=== PATIENT | male | born 1995 | race Caucasian/White ===

== ENCOUNTER 2020-03-02 21:34 | Emergency (ER) | payer OTHER, SELFPAY ==
[2020-03-02 21:43] VITALS: BP 138/74; PULSE 93; RESP 16; TEMP 37.1; O2SAT 96; BMI 26.6
--- NOTE | 2020-03-02 22:02 | PC.NURSE ---
THIS NURSE CALLED OUT TO WAITING ROOM. PATIENT REPORTING THAT HE WANTS TO CALL DETOXES. DOES NOT WANT TO COME IN AT THIS TIME.
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
== END 2020-03-02 22:23 | disposition left against medical advice (07) ==
PROVIDERS: Emergency Provider Emergency Medicine
DX: F19.10 Other psychoactive substance abuse, uncomplicated (principal)
CPT/HCPCS: 99283

== ENCOUNTER 2020-03-02 23:14 | Emergency (ER) | payer OTHER, SELFPAY ==
[2020-03-03] VITALS: BP 142/73; PULSE 87; RESP 16; TEMP 36.8; O2SAT 95; BMI 23.5
[2020-03-03 00:32] VITALS: BP 154/103; PULSE 96; RESP 17; TEMP 37.1; O2SAT 99
[2020-03-03 01:17] LABS: Amphetamine Screen Urine Not Detected (Not Detect); Barbiturates, Urine Not Detected (Not Detect); Benzodiazepines Screen Urine POSITIVE (Not Detect); Cannabinoid Screen Urine Not Detected (Not Detect); Cocaine Screen Urine POSITIVE (Not Detect); Opiate Screen Urine POSITIVE (Not Detect); Phencyclidine Screen Urine Not Detected (Not Detect)
--- NOTE | 2020-03-03 01:29 | ED_ITS ---
HPI - General Adult General Chief complaint: General Medical Stated complaint: CRISIS Time Seen by Provider: 03/03/20 01:09 Source: patient Mode of arrival: ambulatory Limitations: no limitations History of Present Illness HPI narrative: Patient comes emergency room trying to speak to a financial wellness coach. Patient states that he uses opioids and cocaine. Patient states he recently left [facility] against medical advice, states that his grandmother got very sick, was sent to the hospital, and the whole family was at the hospital and he wanted to be there as well. Patient denies any suicidal or homicidal ideation, states he has never had any intention of hurting himself in the past. Patient was here earlier, went to the [facility], requested to be discharged because he needed to make more phone calls for detox beds. Patient came back looking for advice on how to get detox beds. Patient denies SI HI. complaint: Looking for detox Related Data Allergies Allergy/AdvReac Type Severity Reaction Status Date / Time No Known Allergies Allergy Verified 03/02/20 21:42 [No Known Allergies*] Review of Systems Review of Systems: Constitutional : No Weight loss, No Fever, No Chills, No Night Sweats, No Fatigue, No Malaise ENT/Mouth : No Hearing loss, No Ear Pain, No Nasal Congestion, No Sinus Pain, No Hoarseness, No sore throat, No Rhinorrhea, No Swallowing Difficulty Eyes: No Eye Pain, No Swelling, No Redness, No Foreign Body, No Discharge, No Vision Changes Cardiovascular : No Chest Pain, No SOB, No Dyspnea on Exertion, No Orthopnea, No Edema, No Palpitations Respiratory : No Cough, No Sputum, No Wheezing, No Smoke Exposure, No Dyspnea Gastrointestinal : No Nausea, No Vomiting, No Diarrhea, No Constipation, No abdominal Pain, No Hematochezia, No Melena Genitourinary : no irregular bleeding, No Dysuria, No Urinary Frequency, No Hematuria, No Urinary Incontinence, No Urgency, No Flank Pain, No Urinary Flow Changes, No Hesitancy Musculoskeletal : No joint pain, No Myalgias, No Joint Swelling Skin : No Skin Lesions, No rash Neuro : No Weakness, No Numbness, No Paresthesias, No Loss of Consciousness, No Dizziness, No Headache Psych : No Anxiety/Panic, No Depression, No SI/HI/AH/VH, No Social Issues, Heme/Lymph: No Bruising, No Bleeding,No Lymphadenopathy Endocrine : No Polyuria, No Polydipsia, No Temperature Intolerance [facility] Past Medical History Medical History (Updated 03/03/20 @ 01:42 by Alexandra Laguerre MD) Substance abuse Social History Social History Advance Directives: No Advance Directives Information Provided: No Physical Exam Vital Signs: Vital Signs: Last Vital Signs Temp 98.8 F 03/03/20 00:32 Pulse 96 03/03/20 00:32 Resp 17 03/03/20 00:32 BP 154/103 H 03/03/20 00:32 Pulse Ox 99 03/03/20 00:32 Body Mass Index 23.5 Appearance: Alert. Oriented X3. No acute distress. Eyes: Pupils equal, round and reactive to light. ENT: Pharynx normal. Neck: Normal inspection. Neck supple. No lymph nodes noted. No crepitus CVS: Normal heart rate and rhythm. Pulses normal. Normal S1 and S2 Respiratory: No respiratory distress. Breath sounds normal. No Wheezing. No rales Abdomen: Soft and nontender. No rigidity. No distention. good BS x4 Skin: Skin warm and dry. Normal skin color. Normal skin turgor. Extremities: No lower extremity edema. No lower extremity edema. No Lacerations. No Rash Neuro: Oriented X 3. No motor deficit. No sensory deficit. Moving all extermities. No slurred speech. Course Course Course Narrative: The care team and I spoke to the patient, patient absolutely refuses to be suicidal or homicidal. Patient is very motivated to make his own phone calls to get into detox. Patient will go tomorrow at 8 a.m. to [facility] and try to get admitted. Patient states that his parents are involved in trying to help him, has good family support Medical Decision Making Lab Data Labs: Lab Results 03/03/20 Range/Units 00:54 Urine Opiates Screen POSITIVE H (Not Detect) Ur Barbiturates Screen Not Detected (Not Detect) Ur Phencyclidine Scrn Not Detected (Not Detect) Ur Amphetamines Screen Not Detected (Not Detect) U Benzodiazepines Scrn POSITIVE H (Not Detect) Urine Cocaine Screen POSITIVE H (Not Detect) U Marijuana (THC) Screen Not Detected (Not Detect) Discharge Plan Discharge Clinical Impression: Substance abuse Patient Disposition: Home, Self-Care Instructions: Polysubstance Abuse (ED) Additional Instructions: Please go to [facility] later today in the morning. Please keep making your own phone calls to detox facilities. If he needs additional help, please call the care team. Please follow-up with your primary care physician tomorrow. If you have any worsening or new symptoms, please return to the emergency room or call 911
--- NOTE | 2020-03-03 01:45 | MHC.CARE ---
CARE Team conducts a bedsearch throughout [place], [place] on pt's behalf, calling [facility], [facility], [facility], and [facility] programs; no male beds avilable today. CARE Team meets with pt along with Dr. Laguerre. Pt states that he wants to leave the ED and only came because family member told him he would be able to speak with a recovery engineer. No recovery coaches available on Thursday nights. Pt's mother called 03/02 in the evening and spoke with CARE Team's Angel Luis Monzon. Mother indicated that pt has been sending vague text messages that are suicidal in nature. Pt came to the ED 2x, the first time leaving without being brought in from waiting room. Both times, pt denies SI/HI. Pt adamantly denies SI at this time, denies any hx of risk. He appears future oriented, as evidenced by being eager to go care for his dog, and calling both [facility] and [facility] himself. He appears motivated for treatment at this time and plans to self present to [facility] tomorrow morning. Pt states that he has been in touch with [facility], CARE Team was unable to confirm if he is on their wait list. Prov ATS typically wants UTOX and covid labs before admitting if a pt has been in the ED recently. CARE Team with pt's verbal consent will fax labs to [facility]. Pt is given contact info for CARE Team and [facility] and is encouraged to reach out for support tomorrow if he needs continued assistance finding and ATS placement. Plan was discussed with and agreed upon by Dr. Jenkins, who was present for intervention.
[2020-03-03 02:19] LABS: COVID-19 Test Negative (Negative); IDNOW Serial# 9DD0AD1C
--- NOTE | 2020-03-03 02:29 | MHC.CARE ---
Results faxed to [facility].
== END 2020-03-03 02:11 | disposition home or self-care (01) ==
PROVIDERS: Emergency Provider Emergency Medicine
DX: F11.129 Opioid abuse with intoxication, unspecified (principal); F14.129 Cocaine abuse with intoxication, unspecified; Z20.822 Contact with and (suspected) exposure to COVID-19; Z71.51 Drug abuse counseling and surveillance of drug abuser
CPT/HCPCS: 36415; 80307; 87635; 99283

== ENCOUNTER 2020-07-29 21:46 | Emergency (ER) | payer OTHER, SELFPAY ==
[2020-07-29 21:53] VITALS: BP 149/95; PULSE 87; RESP 18; TEMP 36.6; O2SAT 99; BMI 23.5
--- NOTE | 2020-07-29 22:32 | MHC.CARE ---
Met with pt in waiting room re: his presentation to ED seeking detox. It was explained that given the time of night and the volume of the ED, it was likely that he wouldn't be seen for some time and that it would be unlikely that it would result in him being admitted for detox treatment anywhere. Pt was provided with a list of detox facilities, explaining the ones that he can show up to at 8am to attempt to get a bed. He was also given a pamphlet for [facility] and encouraged to use them as a support with getting into a treatment program. ED charge nurse updated re: pt's departure from waiting room.
== END 2020-07-29 22:29 | disposition left against medical advice (07) ==
PROVIDERS: Emergency Provider Emergency Medicine
DX: F19.10 Other psychoactive substance abuse, uncomplicated (principal); F14.90 Cocaine use, unspecified, uncomplicated
CPT/HCPCS: 99281; 99282

== ENCOUNTER 2023-08-03 08:25 | Emergency (ER) | payer SELFPAY ==
[2023-08-03 08:33] VITALS: BP 127/86; BP 150/81; PULSE 107; PULSE 95; RESP 16; TEMP 37; O2SAT 96; O2SAT 98; BMI 30.4
--- NOTE | 2023-08-03 08:41 | ED_ITS ---
HPI - Overdose General Chief Complaint: Overdose Stated Complaint: HEROIN OD,NARCAN GIVEN BY FAMILY W/GOOD RESULT Source: patient and EMS Mode of arrival: EMS Limitations: no limitations History of Present Illness ED Provider: BELLA GAUTHIER Narrative: 28 yo male with PMH of prior opiate use not on MAT therapy who has abstained for 3.5 years admits to using TECHNICAL SERVICES COORDINATOR 1 bag of heroin/fentanyl and overdosed. Bystanders and PD are conflicted about narcan amount 4mg vs 16mg but he woke up and walked to EMS stretcher he has no SI/HI. He does not want detox or SUDE eval. complaint: accidental overdose Onset (ago): minute(s) (TECHNICAL SERVICES COORDINATOR) Context: Accidental Overdose: wanted to get high Associated symptoms: other (NONE) Treatments Prior to Arrival: narcan Related Data Allergies Allergy/AdvReac Type Severity Reaction Status Date / Time No Known Allergies Allergy Verified 08/03/23 08:35 [No Known Allergies*] Review of Systems Review of Systems: Constitutional : No Fever, No Chills, No Fatigue ENT/Mouth : No sore throat, No Rhinorrhea Eyes: No Eye Pain, No Swelling, No Redness Cardiovascular : No Chest Pain, No SOB, No Dyspnea on Exertion Respiratory : No Cough, No Sputum Gastrointestinal : No Nausea, No Vomiting, No Diarrhea, No abdominal Pain Genitourinary : No Dysuria, No Urinary Frequency, No Hematuria, Musculoskeletal : No joint pain, No Myalgias, No Joint Swelling Skin : No Skin Lesions, No rash Neuro : No Weakness, No Numbness, No Dizziness, no Headache Psych : No Anxiety/Panic, No Depression, no SI/HI Heme/Lymph: No Bruising, No Bleeding,No Lymphadenopathy Endocrine : No Polyuria, No Polydipsia All other systems reviewed and are negative [facility] Past Medical History Attestation statement: The following information was validated with the patient. Source: old records reviewed Medical History Substance abuse Social History Social History Smoked in Last 30 Days: No Use of substances other than those prescribed or required for medical reasons: Yes Substance Use Type: Heroin Substance Use Type Other:: fentanyl Last Used Substance: Just Prior to Admission Advance Directives: No Advance Directives Information Provided: No Do you have a plan to hurt others: No Plan Physical Exam Vital Signs: Vital Signs: Last Vital Signs Temp 98.6 F 08/03/23 08:33 Pulse 95 08/03/23 08:33 Resp 16 08/03/23 08:33 BP 127/86 08/03/23 08:33 Pulse Ox 96 08/03/23 08:33 O2 Del Method Room Air 08/03/23 08:33 BMI result Body Mass Index 30.4 Appearance: Alert. Oriented X3. No acute distress. Eyes: Pupils equal, round and reactive to light. ENT: Pharynx normal. Neck: Normal inspection. Neck supple. CVS: Normal heart rate and rhythm. Pulses normal. Respiratory: No respiratory distress. Breath sounds normal. Abdomen: Soft and nontender. Skin: Skin warm and dry. Normal skin color. Normal skin turgor. Extremities: No lower extremity edema. No calf ttp Neuro: Oriented X 3. No motor deficit. No sensory deficit. Medical Decision Making Medical Decision Making MDM Narrative: 28 yo male with PMH of opiate use disorder here after accidental overdose he does not want SUDE addiction medicine consult or services he has no SI/HI he has no trauma will observe and then DC - narcan to go ordered Differential Diagnosis Differential Diagnoses: The differential diagnosis associated with the presentation includes overdose, opiate use disorder Admission/Observation Consideration of admission/observation: Escalation of care including admission/observation considered patient alert and oriented no need for repeat narcan declines SUDE or addiction medicine involvement Independent Historian Clinical information obtained from an independent historian. History obtained from or confirmed by: EMS Prescription Management I considered prescription management with: Other Discharge Plan Discharge Clinical Impression: Drug overdose Patient Disposition: Home, Self-Care Instructions: Adult Overdose (ED) Additional Instructions: return for worsening symptoms help with any substance abuse carry narcan with you at all times Print Language: Greek
[2023-08-03 09:34] VITALS: BP 128/83; PULSE 92; RESP 16; TEMP 37; O2SAT 95
[2023-08-03] MEDS: Naloxone HCl Nasal TAKE HOME 4 MG SPRAY 8 MG NOSTRILALT (09:43)
== END 2023-08-03 09:43 | disposition home or self-care (01) ==
PROVIDERS: Emergency Provider Emergency Medicine
DX: T40.1X1A Poisoning by heroin, accidental (unintentional), initial encounter (principal); F11.10 Opioid abuse, uncomplicated; Y92.9 Unspecified place or not applicable; Z71.51 Drug abuse counseling and surveillance of drug abuser
CPT/HCPCS: 99283; 99284

== ENCOUNTER 2024-06-05 22:16 | Emergency (ER) | payer SELFPAY ==
--- NOTE | 2024-06-05 | ECG_ITS ---
Test Reason : cp Blood Pressure : */* mmHG Vent. Rate : 84 BPM Atrial Rate : 84 BPM P-R Int : 130 ms QRS Dur : 82 ms QT Int : 364 ms P-R-T Axes : 42 28 34 degrees QTcB Int : 430 ms Normal sinus rhythm Normal ECG No previous ECGs available Referred By: Generic ED Physician Electronically Signed By: KEYON HERNDON
--- NOTE | ~2024-06-05 | XR_ITS ---
CLINICAL HISTORY: chest pain 2 view chest x-ray Comparison: None Findings: Lungs are clear without acute infiltrates. No pneumothorax. Heart size normal. No acute bony abnormalities. Impression: No acute processes This document has been electronically signed by: Carter Mathew MD on 06/05/2024 23:38:03
[2024-06-05 22:40] VITALS: BP 127/75; PULSE 82; RESP 18; TEMP 36.8; O2SAT 97; BMI 27.5
[2024-06-05 23:05] LABS: MANUAL DIFF FLAG NO
[2024-06-05 23:06] LABS: Basophils Absolute Auto 0.1 X10*3/uL (0.0-0.2); Basophils Percent Auto 1.2 % (0-2); Eosinophils Absolute Auto 0.2 X10*3/uL (0.0-0.4); Eosinophils Percent Auto 4.7 % (0-4); Hematocrit 38.8 % (42.0-52.0); Hemoglobin 13.6 g/dl (14.0-18.0); Imm Gran Abs Auto 0.01 X10*3/uL (0.00-0.03); Imm Gran Pct Auto 0.2 % (0.0-0.4); Lymphocytes Absolute Auto 1.7 X10*3/uL (1.2-4.9); Lymphocytes Percent Auto 38.7 % (20-40); Mean Corpuscular HGB Conc 35.1 g/dl (31.0-36.0); Mean Corpuscular Hemoglobin 30.3 pg (27.0-33.0); Mean Corpuscular Volume 86.4 fL (80.0-98.0); Mean Platelet Volume 8.7 fL (9.4-12.4); Monocytes Absolute Auto 0.3 X10*3/uL (0.1-1.2); Monocytes Percent Auto 6.3 % (2-11); Neutrophils Absolute Auto 2.1 x10*3/uL (2.0-8.3); Neutrophils Percent Auto 48.9 % (45-73); Platelet Count 224 X10*3/uL (160-400); Red Blood Count 4.49 X10*6/uL (4.60-5.80); Red Cell Distribution Width 12.1 % (11.0-16.0); White Blood Count 4.3 X10*3/uL (4.8-10.8)
[2024-06-05 23:20] LABS: Albumin Level 4.5 g/dL (3.5-5.0); Alkaline Phosphatase 77 U/L (39-117); Anion Gap 14 (12-20); Aspartate Amino Transferase 32 U/L (5-37); Bilirubin Total 0.3 mg/dL (0.0-1.0); Blood Urea Nitrogen 8 mg/dL (9-16); Calcium 10.1 mg/dL (8.4-10.2); Carbon Dioxide 27 mmol/L (22-29); Chloride 104 mmol/L (96-108); Creatinine Clr Calc Pharmacy 146.2; Estimated Glomerular Filt Rate > 60; Glucose Random 85 mg/dL (60-115); Potassium 4.2 mmol/L (3.3-5.1); Sodium 141 mmol/L (135-145); Total Protein 7.5 g/dL (6.5-8.0)
[2024-06-05 23:27] LABS: Troponin-I High Sensitivity 2.8 ng/L (<3.5-35.0)
[2024-06-05 23:37] LABS: Alanine Aminotransferase 51 U/L (0-40)
[2024-06-05 23:43] VITALS: BP 127/82; PULSE 85; RESP 14; TEMP 36.6; O2SAT 100
--- NOTE | 2024-06-05 23:44 | MHC.EDTECH ---
Patient changed into hospital attire,placed on the cardiac rehabilitation specialist,vitals taken,pt appears comfortable, provider at bedside,call schaffer in reach
--- NOTE | 2024-06-05 23:55 | ED_ITS ---
HPI - Chest Pain General Chief Complaint: Chest Pain Stated Complaint: chest pain/left side fingers numb Time Seen by Provider: 06/05/24 23:34 Source: patient, family, RN notes reviewed and old records reviewed Mode of arrival: ambulatory Limitations: no limitations History of Present Illness ED Provider: Justin GAUTHIER narrative: 29-year-old male presents for evaluation of chest pain. Patient reports that he has been using a significant amount of IV cocaine for the last 3 months. He states that while using IV cocaine yesterday he had severe chest pain, shortness of breath and I felt like something was off. He states he has had intermittent chest pain since yesterday. He was occasional numbness and tingling in his left arm and he had. He has a history of anxiety. The patient admits to using approximately 200 dollars worth of cocaine daily he has used IV cocaine on and off for the last 6 years with a 3 year period of sobriety in that time Related Data Allergies Allergy/AdvReac Type Severity Reaction Status Date / Time No Known Allergies Allergy Verified 06/05/24 22:48 [No Known Allergies*] Review of Systems 2 Constitutional: Constitutional: Denies body ache(s), Denies chills, Denies fever(s) and Denies frequent falls Eyes: Eyes: Denies blurry vision ENT: Denies vertigo Cardiovascular: Cardiovascular: Reports chest pain, Reports chest pain at rest, Reports chest pain with activity, Reports rapid heart rate, Reports palpitations and Reports dyspnea Respiratory: Respiratory: Denies cough and Reports dyspnea Gastrointestinal: Gastrointestinal: Denies abdominal pain, Denies nausea and Denies vomiting Musculoskeletal: Musculoskeletal: Denies back pain Integumentary/Breasts: Skin/Breast: Denies rash Neurologic: Denies vertigo and Denies frequent falls Psychiatric: Psychiatric: Reports anxiety, Denies homicidal ideation and Denies suicidal ideation Endocrine: Endocrine: Reports palpitations PMFSH Past Medical History Medical History Substance abuse Social History Social History Substance Use Type: Heroin Advance Directives: No Advance Directives Information Provided: Yes Physical Exam 2 Vital Signs: Vital Signs: Last Vital Signs Temp 97.9 F 06/05/24 23:43 Pulse 85 06/05/24 23:43 Resp 14 06/05/24 23:43 BP 127/82 06/05/24 23:43 Pulse Ox 100 06/05/24 23:43 O2 Del Method Room Air 06/05/24 23:43 BMI result Body Mass Index 27.5 Const: General: healthy appearing, comfortable, no acute distress, alert and awake Nutritional Appearance: well nourished Orientation/consciousness: p atient oriented x3 HEENT: Head: Yes normocephalic and Yes atraumatic Eyes: Eyelids: Yes eyelids normal Conjunctivae: conjunctivae normal S clerae: sclerae normal Corneas: corneas normal Pupils: Equal, round and reactive pupils present EOM: EOMs intact bilaterally Neck: Neck: Yes full ROM Resp: Effort & Inspection: normal respiratory effort, able to speak in complete sentences, no audible wheezes and not labored Auscultation: clear to auscultation bilaterally Cardio: Rate: regular rate Rhythm: regular rhythm GI: Inspection: No distended Palpation (GI): Soft to palpation, not firm, nontender, no guarding and not rigid Skin: General skin exam: no rashes or lesions noted and elasticity normal Neuro: General: patient oriented x3 Cranial nerves: Yes Equal, round and reactive pupils present and Yes Bilaterally intact EOM present Cognition (Neuro): normal cognition Medical Decision Making Medical Decision Making [facility] Narrative: 29-year-old male presents for evaluation of chest pain in the setting of cocaine abuse. It sounds as if he was using a fairly significant amount of cocaine. His EKG is nonischemic, no ectopy, no ischemic changes. His vital signs are stable at arrival to the ED. He is currently asymptomatic. Troponin is negative. He rules out for ACS as his pain started yesterday. Chest x-ray is clear, no evidence of cardiomyopathy this is heart size is normal, there was no pleural effusion, pneumothorax or infiltrates. The patient's pain may be related to anxiety versus coronary artery vasospasm. the patient was offered detox but he declines have a prefer to be discharged home. I did give him a Cardiology referral pain encouraged him to consider detox Differential Diagnosis Differential Diagnoses: The differential diagnosis associated with the presentation includes chest pain Costochondritis Anxiety ACS Prinzmetal's angina Admission/Observation Consideration of admission/observation: Escalation of care including admission/observation considered Lab Data [facility] Lab Attestation statement: I reviewed the patient's lab results. mild leukopenia and anemia, normal platelet count. No significant electrolyte abnormalities. Troponin negative 06/05/24 23:00 06/05/24 23:00 Labs: Lab Results 06/05/24 Range/Units 23:00 WBC 4.3 L (4.8-10.8) X10*3/uL RBC 4.49 L (4.60-5.80) X10*6/uL Hgb 13.6 L (14.0-18.0) g/dl Hct 38.8 L (42.0-52.0) % MCV 86.4 (80.0-98.0) fL MCH 30.3 (27.0-33.0) pg MCHC 35.1 (31.0-36.0) g/dl RDW 12.1 (11.0-16.0) % Plt Count 224 (160-400) X10*3/uL MPV 8.7 L (9.4-12.4) fL Immature Gran % (Auto) 0.2 (0.0-0.4) % Neut % (Auto) 48.9 (45-73) % Lymph % (Auto) 38.7 (20-40) % [place] % (Auto) 6.3 (2-11) % Eos % (Auto) 4.7 H (0-4) % Baso % (Auto) 1.2 (0-2) % Lymph # (Auto) 1.7 (1.2-4.9) X10*3/uL [place] # (Auto) 0.3 (0.1-1.2) X10*3/uL Eos # (Auto) 0.2 (0.0-0.4) X10*3/uL Baso # (Auto) 0.1 (0.0-0.2) X10*3/uL Abs Immat Gran (auto) 0.01 (0.00-0.03) X10*3/uL Absolute Neuts (auto) 2.1 (2.0-8.3) x10*3/uL Absolute Nucleated RBC 0.000 (0.0-0.012) X10*3/uL Nucleated RBC % (auto) 0.0 (0.0-0.2) /100WBC Sodium 141 (135-145) mmol/L Potassium 4.2 (3.3-5.1) mmol/L Chloride 104 (96-108) mmol/L Carbon Dioxide 27 (22-29) mmol/L Anion Gap 14 (12-20) BUN 8 L (9-16) mg/dL Creatinine 0.74 (0.5-1.4) mg/dL Estim Creat Clear Calc 146.2 Estimated GFR > 60 Random Glucose 85 (60-115) mg/dL Calcium 10.1 (8.4-10.2) mg/dL Total Bilirubin 0.3 (0.0-1.0) mg/dL AST 32 (5-37) U/L ALT 51 H (0-40) U/L Alkaline Phosphatase 77 (39-117) U/L Troponin I High Sens 2.8 (<3.5-35.0) ng/L Total Protein 7.5 (6.5-8.0) g/dL Albumin 4.5 (3.5-5.0) g/dL Independent Interpretation I performed an independent interpretation of an: EKG ( normal sinus rhythm with a rate of [address] changes) and Plain X-Ray Interpretation: agree with Radiology interpretation, no infiltrates or effusions Radiology Impression Discussion of test interpretation with radiology: I have reviewed the radiologist's reading. Radiologist Impression: Findings: Lungs are clear without acute infiltrates. No pneumothorax. Heart size normal. No acute bony abnormalities. Impression: No acute processes This document has been electronically signed by: Carter Mathew MD on 06/05/2024 23:38:03 Discharge Plan Discharge Clinical Impression: Chest pain, Cocaine abuse Patient Disposition: Home, Self-Care Instructions: Chest Pain (ED), Cocaine Abuse (ED) Additional Instructions: your workup in the ER today was reassuring. This includes your EKG, chest x-ray, labs. Your symptoms may be related to anxiety and could also be exacerbated by cocaine abuse. I recommend that you discontinue cocaine abuse in seek detox if necessary you may follow up with Cardiology regarding your chest pain and I recommended he talk to your primary doctor, return for new or worsening symptoms Referrals: Bib Ken MD [Physician] - (chest pain, cocaine abuse) Print Language: Yakut
[2024-06-06 00:29] VITALS: BP 127/82; PULSE 85; RESP 14; TEMP 36.6; O2SAT 100
== END 2024-06-06 00:44 | disposition home or self-care (01) ==
PROVIDERS: Emergency Provider Internal Medicine
DX: R07.9 Chest pain, unspecified (principal); F14.10 Cocaine abuse, uncomplicated
CPT/HCPCS: 36415; 71046; 80053; 84484; 85025; 93005; 99283; 99284

== ENCOUNTER → 2024-06-05 22:20 | Outpatient (BNV) | payer SELFPAY | PROVIDERS: Emergency Provider Internal Medicine; Visit Provider Internal Medicine | DX: R07.9 Chest pain, unspecified (principal) | CPT/HCPCS: 93010 ==

== ENCOUNTER → 2024-06-05 22:50 | Outpatient (BNV) | payer SELFPAY | PROVIDERS: Emergency Provider Internal Medicine; Visit Provider Radiology Diagnostic Radiology | DX: R07.9 Chest pain, unspecified (principal) | CPT/HCPCS: 71046 ==